=== PATIENT | male | born 1995 | race Two or more races ===

== ENCOUNTER 2019-04-24 18:31 | Emergency (ER) | payer OTHER ==
[~2019-04-24] VITALS: Ht 172.7 cm; Wt 81.6 kg
[2019-04-24 18:52] VITALS: BP 126/84
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
--- NOTE | 2019-04-24 19:05 | NUR ---
HAND-OFF: Report given to LICO Aguilar. no orders to carry at this moment.
[2019-04-24] MEDS ORDERED: Ketorolac 30mg Inj IM ONE (19:15)
--- NOTE | 2019-04-24 19:15 | NUR ---
ED Nurse Note: Pt went to X ray.
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
[2019-04-24] MEDS ORDERED: IBU800 MG PO (19:49)
[2019-04-24] MEDS ORDERED: ROBAXIN500 MG PO (19:49)
[2019-04-24 19:56] VITALS: BP 118/74
[2019-04-24 19:57] VITALS: BP 118/74
--- NOTE | 2019-04-24 19:57 | NUR ---
ER DISCHARGE NOTE: Patient is cleared to be discharged per ERMD, pt is aox4, on room air, with stable vital signs. pt was given dc and prescription instructions, pt was able to verbalize understanding, pt id band removed without complications. pt is able to ambulate with steady gait with friend. pt took all belongings.
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
== END 2019-04-24 20:03 | disposition home or self-care (01) ==
LOC: EMR 19:00
DX: S29.012A Strain of muscle and tendon of back wall of thorax, initial encounter (principal); S46.911A Strain of unspecified muscle, fascia and tendon at shoulder and upper arm level, right arm, initial encounter; V43.52XA Car driver injured in collision with other type car in traffic accident, initial encounter; Y92.410 Unspecified street and highway as the place of occurrence of the external cause
CPT/HCPCS: 72070; 73030; 96372; 99284; J1885